=== PATIENT | female | born 1980 | race Caucasian/White ===

== ENCOUNTER 2017-10-19 13:23 | Emergency (ER) | payer OTHER ==
[~2017-10-19] VITALS: Ht 162.6 cm; Wt 151.5 kg
[~2017-10-19 13:23] MED LIST: KENALOG IN ORABA5 GM DT; NAPROSYN500 MG PO; VALIUM5 MG PO
[2017-10-19 14:18] LABS: HEMATOCRIT 40.5 % (36.0-46.0); HEMOGLOBIN 13.4 G/DL (11.9-15.5); MCH 28.2 PG (29.0-34.0); MCHC 33.1 G/DL (30.0-36.0); MCV 85.1 FL (83-99); PLATELET COUNT 358 K/uL (156-360); RBC DIS.WIDTH-CV 13.2 % (11.8-14.6); RBC DIS.WIDTH-SD 41.2 % (39-53); RED BLOOD COUNT 4.76 M/uL (3.80-5.20); WHITE BLOOD COUNT 9.8 K/uL (4.1-10.2)
[2017-10-19 14:29] LABS: CHLORIDE 107 mEq/L (99-109); SODIUM 139 mEq/L (136-147)
[2017-10-19 14:31] LABS: GLUCOSE 92 mg/dL (70-99)
[2017-10-19 14:34] LABS: CREATININE 0.8 mg/dL (0.6-1.3); GFR ESTIMATE (CALCULATED) > 59 mL/min/
[2017-10-19 14:35] LABS: UREA NITROGEN (BUN) 11 mg/dL (9-23)
[2017-10-19 16:41] LABS: COLOR AMBER ((YELLOW))
[2017-10-19 16:42] LABS: APPEARANCE CLOUDY ((CLEAR)); BILIRUBIN SMALL; BLOOD LARGE; GLUCOSE (STRIP) NEGATIVE; KETONES NEGATIVE; LEUKOCYTES SMALL; NITRITE NEGATIVE; PH, URINE 6 (5-8); PROTEIN (STRIP) 300; SPECIFIC GRAVITY 1.028 (1.000-1.030); UROBILINOGEN 0.2 MG/DL (0.2-1.0)
[2017-10-19 17:16] LABS: RED BLOOD CELLS TNTC /HPF (0-5)
[2017-10-19 17:17] LABS: BACTERIA 3+ /HPF; EPITHELIAL CELLS 2+ /HPF; MUCUS NONE SEEN /LPF
[2017-10-19 17:41] LABS: QUANTITATIVE HCG < 4.0 MIU/ML
[2017-10-19] MEDS ORDERED: NORCO 5/3251 TABLET PO (18:51)
[2017-10-19] MEDS ORDERED: ZOFRAN ODT8 MG PO (18:51)
[2017-10-19 19:04] VITALS: BP 148/87
== END 2017-10-19 19:06 | disposition home or self-care (01) ==
LOC: EME 13:23
PROVIDERS: Physician Assistant
DX: R31.9 Hematuria, unspecified (principal); R10.9 Unspecified abdominal pain; F32.9 Major depressive disorder, single episode, unspecified; Z88.5 Allergy status to narcotic agent; Z88.2 Allergy status to sulfonamides
CPT/HCPCS: 74176; 80048; 81003; 84702; 85027; 87077; 87086; 87186; 99281; 99284; J2270